=== PATIENT | male | born 1980 | race Caucasian/White ===

== ENCOUNTER 2017-12-09 14:33 | Emergency (ER) | payer OTHER ==
[2017-12-09 14:39] VITALS: BP 144/95
[2017-12-09] MEDS ORDERED: oxyCOD/ACETAMIN 5 MG/325 MG TABLET PO STA (15:21)
[2017-12-09] MEDS ORDERED: TETANUS/DIPHTHERIA/PERTUSSIS 0.5 ML SYRINGE IM ONE (15:21)
[2017-12-09] MEDS ORDERED: BACITRACIN OINT TOP STA (15:21)
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
== END 2017-12-09 16:08 | disposition home or self-care (01) ==
LOC: ED 14:33
DX: T23.261A Burn of second degree of back of right hand, initial encounter (principal); T23.211A Burn of second degree of right thumb (nail), initial encounter; T22.211A Burn of second degree of right forearm, initial encounter; X10.2XXA Contact with fats and cooking oils, initial encounter; Y92.010 Kitchen of single-family (private) house as the place of occurrence of the external cause; Z23 Encounter for immunization
CPT/HCPCS: 16020; 90471; 90715; 99283; A9270